=== PATIENT | male | born 1965 | race Caucasian/White ===

== ENCOUNTER 2017-03-14 05:45 | Day surgery (SDC) | payer OTHER ==
[2017-03-14] MEDS ORDERED: LACTATED RINGERS 1,000 ML ONE (06:06)
[2017-03-14] MEDS ORDERED: PROPOFOL 200 MG/20 ML VIAL IV ONE (09:00)
[2017-03-14] MEDS ORDERED: LIDOCAINE 1% 10 ML VIAL INJ ONE (09:00)
[2017-03-14 12:31] VITALS: BP 113/71; TEMP 97; O2SAT 98
--- NOTE | 2017-03-27 08:53 | OP ---
DATE OF PROCEDURE: 03/14/17 PREOPERATIVE DIAGNOSIS: 1. Family history of polyps in his father. 2. Family history of colon cancer in a paternal grandfather. POSTOPERATIVE DIAGNOSIS: 1. Diverticulosis. 2. Internal hemorrhoids. PROCEDURE: 1. Colonoscopy. SURGEON: Nate Hancock MD. COMPLICATIONS: None apparent. BLOOD LOSS: None. MEDICATIONS: Monitored anesthesia care. DESCRIPTION OF PROCEDURE: Informed consent was obtained prior to sedation. The preprocedure cardiopulmonary assessment was satisfactory. The patient was placed in the left lateral decubitus position and was sedated. A digital rectal exam revealed no rectal masses. There was a small amount of skin tag and external hemorrhoid disease. The tip of the Olympus colonoscope was inserted in the rectum and guided over to the cecum. The cecum was identified by locating the ileocecal valve and appendiceal orifice. The mucosa of the cecum, ascending colon, hepatic flexure, transverse colon, splenic flexure, descending colon and sigmoid colon was closely examined. Direct and retroflexed views of the rectum were obtained. The patient has sigmoid diverticulosis. The patient has some small internal hemorrhoids. Otherwise, the colonoscopy was unremarkable. RECOMMENDATIONS: 1. He has had some scant bright red blood per rectum and warrants a high fiber diet and fiber supplementation with Metamucil capsules 2 a day in order to try to minimize the bleeding as well as help with his diverticular disease. 2. Followup colonoscopy in 5 years. #[id number] cc: Brown Smith MD MTDD
== END 2017-03-14 11:10 | disposition home or self-care (01) ==
LOC: AMB 05:45
PROVIDERS: ATTEND Internal Medicine Gastroenterology
DX: K62.5 Hemorrhage of anus and rectum (principal); K57.30 Diverticulosis of large intestine without perforation or abscess without bleeding; K64.8 Other hemorrhoids; K64.4 Residual hemorrhoidal skin tags; K21.9 Gastro-esophageal reflux disease without esophagitis; E78.00 Pure hypercholesterolemia, unspecified; M19.90 Unspecified osteoarthritis, unspecified site; E66.9 Obesity, unspecified; Z68.35 Body mass index [BMI] 35.0-35.9, adult; Z80.0 Family history of malignant neoplasm of digestive organs; Z83.71 Family history of colonic polyps
CPT/HCPCS: 00810; 45378; J3490; J7120

== ENCOUNTER → 2018-08-21 | Outpatient (CLI) | payer BC | LOC: GMAE 10:47 | PROVIDERS: ATTEND Family Medicine | DX: Z00.01 Encounter for general adult medical examination with abnormal findings (principal); E72.10 Disorders of sulfur-bearing amino-acid metabolism, unspecified; E72.12 Methylenetetrahydrofolate reductase deficiency ==

== ENCOUNTER → 2020-09-15 | Outpatient (CLI) | payer BC ==
--- NOTE | 2020-09-15 10:20 | US ---
EXAM DESCRIPTION: Venous,Lower Extremity RT: ULTRASOUND. CLINICAL HISTORY: PAIN IN RT LEG COMPARISON: None Available. TECHNIQUE: Islas-scale and doppler sonographic evaluation of the deep venous system of the right lower extremity. FINDINGS: Grayscale evaluation of the right posterior tibial vein showing echogenic thrombus with poor or no compressibility minimal color Doppler flow and waveform. Normal augmentation. Doppler evaluation shows normal color flow and normal phasicity and augmentation of the right common femoral vein, right femoral vein, popliteal vein, right greater saphenous vein, junction with the CFV. Also normal color flow and normal phasicity and augmentation of the right lesser saphenous vein, right peroneal, tab and posterior tibial vein. The remaining right lower extremity deep veins were completely compressible; normal occlusion with transducer pressure. Islas-scale survey showed no echogenic thrombus within these veins. IMPRESSION: 1. Duplex ultrasound evaluation of the right lower extremity deep venous system showing thrombosis in the right posterior tibial vein. 2. Remaining veins of the deep venous system as well as the greater saphenous and the lesser saphenous veins showing no thrombosis. Electronically signed by: Isaac Bales MD 09/15/2020 10:19 AM [facility]
== END ==
LOC: US 08:00
PROVIDERS: ATTEND Family Medicine
DX: I82.441 Acute embolism and thrombosis of right tibial vein (principal)

== ENCOUNTER → 2020-09-15 | Outpatient (CLI) | payer BC | LOC: GMAE 10:11 | PROVIDERS: ATTEND Family Medicine | DX: I82.409 Acute embolism and thrombosis of unspecified deep veins of unspecified lower extremity (principal) ==

== ENCOUNTER → 2020-10-05 | Outpatient (CLI) | payer BC ==
--- NOTE | 2020-10-05 16:11 | CT ---
EXAM DESCRIPTION: Abdomen/Pelvis w/Contrast CLINICAL HISTORY: dvt of lower right extremity COMPARISON: March 13, 2014 TECHNIQUE: Postcontrast CT images of the abdomen and pelvis are obtained using standard imaging protocol. This exam was performed according to our departmental dose-optimization program, which includes automated exposure control, adjustment of the mA and/or kV according to patient size and/or use of iterative reconstruction technique . FINDINGS: Visualized lung bases are unremarkable. The liver, spleen, pancreas, adrenal glands, contracted gallbladder, and abdominal vasculature is unremarkable. Fluid attenuation cortical cyst on the anterior mid to lower pole right kidney is enlarged measuring 18 mm compared to 11 mm previously no nephrolithiasis. Interval enlargement of fluid attenuation cortical cyst of the lower pole left kidney measuring 6.4 cm compared to 4.5 cm previously. Smaller cortical cyst of the midpole are seen. No ureteral constipation or obstruction. Urinary bladder is poorly distended but otherwise unremarkable. Mild prostate calcifications. Small fat-containing left inguinal hernia. The appendix is air-filled and normal. Stomach poorly distended but unremarkable. No small bowel obstruction or bowel wall thickening. No abdominal mass or mass effect on the IVC or pelvic veins. No pathologic lymphadenopathy. No free intraperitoneal air. No abnormal drainable fluid collections. Osseous structures show no aggressive bony lesions. Facet arthropathy is most significant right greater than left at L5-S1. Mild spondylitic changes of the spine are seen. IMPRESSION: No acute findings on CT of the abdomen and pelvis. No compressing mass on the major venous vasculature of the abdomen or pelvis. Interval enlargement of simple bilateral renal cortical cysts are seen. Electronically signed by: Jose Daniel Serrano MD 10/05/2020 4:10 PM [employer]
--- NOTE | 2020-10-05 16:24 | CT ---
EXAM DESCRIPTION: Chest w/Contrast CLINICAL HISTORY: dvt of right lower extremity COMPARISON: None. TECHNIQUE: Postcontrast CT images of the chest are obtained using standard imaging protocol. This exam was performed according to our departmental dose-optimization program, which includes automated exposure control, adjustment of the mA and/or kV according to patient size and/or use of iterative reconstruction technique . FINDINGS: The heart and great vessels are within normal limits. Several less than 1 cm mediastinal, hilar, and axillary lymph nodes are likely reactive. No pleural or pericardial effusion. Lungs are normally aerated without acute appearing infiltrate or consolidation. Small 3 mm noncalcified pulmonary nodule in the lateral right middle lobe small 3 mm subpleural nodule in the right lower lobe. Osseous structures show no aggressive bony lesions. Mild degenerative changes of the thoracic spine and ribs are seen. IMPRESSION: No acute findings on CT of the chest. Multiple pulmonary nodules. Most severe: 3 mm right solid pulmonary nodule. No routine follow-up imaging is recommended. These guidelines do not apply to immunocompromised patients and patients with cancer. Follow up in patients with significant comorbidities as clinically warranted. For lung cancer screening, adhere to Lung-RADS guidelines. Reference: Radiology. 2017; 284(1):228-43. Electronically signed by: Jose Daniel Serrano MD 10/05/2020 4:22 PM [employer]
== END ==
LOC: CT 08:55
PROVIDERS: ATTEND Internal Medicine Hematology & Oncology
DX: Z01.812 Encounter for preprocedural laboratory examination (principal); I82.402 Acute embolism and thrombosis of unspecified deep veins of left lower extremity; R91.8 Other nonspecific abnormal finding of lung field; K40.90 Unilateral inguinal hernia, without obstruction or gangrene, not specified as recurrent; N28.1 Cyst of kidney, acquired